=== PATIENT | male | born 1965 | race Caucasian/White ===

== ENCOUNTER 2017-02-12 02:05 | Emergency (ER) | payer OTHER ==
[~2017-02-12] VITALS: Ht 185.4 cm; Wt 158.8 kg
[~2017-02-12 02:05] MED LIST: CEPHALEXIN500 MG PO; CIPRO500 MG PO; DELTASONE20 MG PO; FLOMAX0.4 MG PO; FUROSEMIDE40 MG PO; GUAIFENESIN AC473 ML PO; LISINOPRIL-HCT1 EACH PO; MELOXICAM15 MG PO; METFORMIN HCL500 MG PO; METOPROLOL TART50 MG PO; NAPROSYN500 MG PO; NAPROXEN500 MG PO; NORCO 5-325 TA1 EACH PO; PERCOCET 5-3251 EACH PO; POTASSIUM CHLO10 MEQ PO; PREDNISONE20 MG PO; PRINIVIL10 MG PO; PROVENTIL HFA6.7 GM INH; SEPTRA DS TABL1 EACH PO; ULTRAM50 MG PO; ZOFRAN ODT8 MG PO
[2017-02-12] MEDS ORDERED: NORCO 5-325 TA1 EACH PO (03:08)
[2017-02-12] MEDS ORDERED: CRUTCH1 EACH (03:09)
== END 2017-02-12 03:33 | disposition home or self-care (01) ==
LOC: ED 02:05
DX: S83.92XA Sprain of unspecified site of left knee, initial encounter (principal); E11.9 Type 2 diabetes mellitus without complications; I10 Essential (primary) hypertension; E66.01 Morbid (severe) obesity due to excess calories; Z87.891 Personal history of nicotine dependence; Z88.1 Allergy status to other antibiotic agents; Z79.899 Other long term (current) drug therapy; Z79.84 Long term (current) use of oral hypoglycemic drugs; W18.09XA Striking against other object with subsequent fall, initial encounter
CPT/HCPCS: 73560; 99283

== ENCOUNTER 2017-07-29 23:20 | Inpatient (IN) | payer OTHER ==
[~2017-07-29] VITALS: Ht 185.4 cm; Wt 170.5 kg
[~2017-07-29 23:20] MED LIST changes: +CRUTCH1 EACH
--- NOTE | 2017-07-30 03:13 | NUR ---
PT ARRIVES TO ROOM 127 FOR HOUSE CONVENIENCE ADMIT. ALERT AND AWAKEN SLIDES SELF OVER TO BED. ASSESSMENT DONE. CURRENTLY RATES MIDEPIGASTRIC ABDOMINAL PAIN 6/10, STATES ITS BETTER THAN IT WAS AND HAS A LITTLE NAUSEA.
--- NOTE | 2017-07-30 05:01 | NUR ---
PT HAS BEEN SLEEPING WITH O2 IN PLACE, OCCASIONAL DESATURATION DOWN TO 86% THEN BACK UP TO 96%, STATED HE DOES WEAR A BIPAP AT HOME WHILE SLEEPING.
--- NOTE | 2017-07-30 07:19 | EKG ---
[facility] [address] [place], [place] [address] Signed Normal sinus rhythm Normal ECG When compared with ECG of 05-APR-2016 19:19, No significant change was found Confirmed by RODRIGO GAMBINO MD ([id number]) on 07/30/2017 7:19:45 AM Electronically Signed By: RODRIGO GAMBINO MD 07/30/17 0719 PATIENT NAME: JOSE JACOBS Electrocardiogram DATE OF : 63 PHYSICIAN: RODRIGO GAMBINO MD REPORT #: [id number] REPORT IS CONFIDENTIAL AND NOT TO BE RELEASED WITHOUT AUTHORIZATION
--- NOTE | 2017-07-30 09:15 | NUR ---
IN TO PROOM TO ASSESS PATIENT. REPORTED PAIN. PATIENT MEDICATED FOR 7/10 EPIGASTRIC PAIN. SHIFT ASSESSMENT DONE. LUNGS ARE DIM. PATIENT HAS HX OF PSORIASIS. PEDAL PULSES PALPABLE. PATIENT IS NPO AT THIS TIME. DENIES NAUSEA WILL CONTINUE TO MONITOR
--- NOTE | 2017-07-30 09:30 | NUR ---
DR WILLSON WAS IN ROOM TO EVALUATE AND DISCUSS PLAN OF CARE.
--- NOTE | 2017-07-30 10:30 | NUR ---
PATIENT UP TO BATHROOM. CONSENT SIGNED.
--- NOTE | 2017-07-30 10:39 | NUR ---
MICHAEL ANESTHESIOLOGIST IN ROOM TO TALK TO PATIENT.
--- NOTE | 2017-07-30 11:35 | NUR ---
PATIENT TRANSFER TO [facility]. WILL CONTINUE TO CARE FOR PATIENT.
--- NOTE | 2017-07-30 12:18 | NUR ---
PATIENT IS TAKING A HIBICLENS SHOWER. I AM STANDING BY IN CASE HE NEEDS ASST. LINEN CHANGED.
--- NOTE | 2017-07-30 14:49 | NUR ---
PATIENT OFF THE FLOOR WITH SURGERY NURSE TOM.
--- NOTE | 2017-07-30 15:38 | NUR ---
PATIENT BACK TO FLOOR, SURGERY WAS CANCEL DUE TO PATIENT RESPIRATORY ISSUES (EXPIRATORY WHEEZING, LOW OXYGENE SATURATION) CHEST XRAY DONE AND NEB TREATMENT DONE IN SURGERY DEPARTMENT. PATIENT REPORT MILD ABD PAIN, HEADACHE. NO APPARENT DISTRESS. VS STABLE.
--- NOTE | 2017-07-30 15:58 | HP ---
[facility] [address] [place], [place] [address] Signed ADMISSION DATE: 07/29/2017 REASON FOR ADMISSION: Acute calculous cholecystitis and morbid obesity. 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 He has had left knee problems and is under the care of Dr. Vish Zuniga for that. He has had arthroscopic interventions on that knee and is anticipating some other orthopedic surgery there as well. He was watching TV late last night and had the sudden onset of very severe right upper abdominal and mid abdominal pain. He presented to the emergency room where he was evaluated by Dr. Jernigan. He had nausea and vomiting x1 documented. He had some shortness of breath and mid chest pain and EMS had transported him to the hospital and nitroglycerin was given en route with resolution of the chest pain, but with persistent abdominal pain. His evaluation in the emergency room included lab studies, which showed reasonably normal urinalysis, normal lipase at 33, chem profile normal and normal white count of 7.0 with hematocrit of 40.2 with platelets of 130,000. His troponin was normal. Liver enzymes were normal. A chest x-ray showed prominent pulmonary vasculature without pulmonary edema similar to previous exams and an ultrasound showed gallstones as well as gallbladder sludge and a thickened gallbladder wall and a positive Burroughs sign. Hepatomegaly was noted as well. He is admitted for further evaluation and care for acute calculous cholecystitis. PAST MEDICAL HISTORY: Primarily significant for the orthopedic issue as we described of his left knee. He is on a temporary Workers Comp Disability. Past medical history also includes hypertension. MEDICATIONS: Include: 1. Lasix 40 mg p.o. daily. 2. Lisinopril/hydrochlorothiazide 20/12.5 p.o. daily. 3. Metformin 500 mg p.o. b.i.d. SOCIAL HISTORY: He lives with his ex- and children. 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 REVIEW OF SYSTEMS: He has no chest pain at this time. No dysphagia, hematemesis, or blood per rectum. His Electronically Signed By: ROSY WILLSON MD 07/30/17 1558 PATIENT NAME: JOSE JACOBS HISTORY AND PHYSICAL DATE OF : 63 PHYSICIAN: ROSY WILLSON MD REPORT #: [id number] REPORT IS CONFIDENTIAL AND NOT TO BE RELEASED WITHOUT AUTHORIZATION [facility] [address] [place], [place] [address] Signed pain persists in the upper abdomen mostly in the right subcostal area. PHYSICAL EXAMINATION: GENERAL: A very large and hairy white man with a very full clark. He is alert, oriented, and not systemically toxic. HEENT: Mucous membranes are reasonably moist. Trachea is midline. CHEST: Shows normal respiratory excursion without tachypnea. ABDOMEN: His abdomen is markedly obese. He has multiple skin lesions of his abdominal wall and psoriasis type lesions as well. EXTREMITIES: Show no clubbing, cyanosis, or edema. LABORATORY DATA: Lab studies and other studies were reviewed in detail. ASSESSMENT: He has acute calculous cholecystitis. This is complicated by an underlying problem of obesity as well as a smoking history. Discussed with him the pathophysiology of the problem and recommendation of treatment to include cholecystectomy, preferably by laparoscopic approach. He may require an open procedure, particularly given his obesity and hepatomegaly and so laparoscopic approach would be preferred obviously. We will administer him more fluids, continue IV antibiotics, and optimization and consider for cholecystectomy later in the day if possible. MD CHRISTIAN Jimenez/JUDITHL /[id number] cc: LATRICIA Mckeon MD Electronically Signed By: ROSY WILLSON MD 07/30/17 1558 PATIENT NAME: JOSE JACOBS HISTORY AND PHYSICAL DATE OF : 63 PHYSICIAN: ROSY WILLSON MD REPORT #: [id number] REPORT IS CONFIDENTIAL AND NOT TO BE RELEASED WITHOUT AUTHORIZATION
--- NOTE | 2017-07-30 18:47 | NUR ---
RT WAS IN ROOM TO DRAW ABG. PATIENT STARTED TO VOMIT. WARM WASH CLOTH GIVEN AND PATIENT WAS MEDICATED WITH ZOFRAN. 100ML OF EMESIS.
--- NOTE | 2017-07-30 18:49 | NUR ---
PATIENT TO FLOOR FROM CCU. SURGERY WAS CANCELED DUE TO RESPIRATORY ISSUES. PATIENT CAME BACK TO FLOOR, ADVANCE TO CLEAR LIQ DIET, DID NOT TOLERATED. PATIENT HAD ZOFRAN AND PHENERGAN.PATIENT ON 3L OF 02 VIA NC. NEED TO BE ON 02 AT ALL TIME. U/O Q/S. DR JONES CONSULTING.
--- NOTE | 2017-07-30 19:15 | NUR ---
SHIFT REPORT RECIEVED. PATIENT RESTING QUIETLY. BREATHING EVEN AND NONLABORED. RR18. HOB ELEVATED. CALL LIGHT IN REACH.
--- NOTE | 2017-07-30 19:59 | NUR ---
Pt jocelin, RT here placing bipap on pt. Bed alrm placed on. Family had multiple questions and concerns about pts meds, state of health, why surgery got cancelled and about bipap. RT staff and this RN answered all their questions to their satisfaction. Dr Laguna notified. Dr WILLSON notified via phone, message left. Pt eyes closed, opened eyes, did not utter a word. Family at bedside
--- NOTE | 2017-07-30 20:07 | NUR ---
PATIENT IN BED WITH BIPAP ON. ROOM TIDIED. WHITEBOARD UPDATED.
--- NOTE | 2017-07-30 20:12 | NUR ---
PATIENT IS DROWSEY, EASILY AROUSABLE. ORIENTED X4. BIPAP IN PLACE. RT IN ROOM. PATIENT'S DAUGHTERS IN ROOM. ALL ARE VERY ANXIOUS AND TEARFUL. RN EXPLAINED THE PLAN OF CARE TO THE OLDEST DAUGHTER AND REASSURED THAT THEY WOULD BE CONTACTED IF THE PATIENT'S CONDITION CHANGES THROUGHOUT THE NIGHT. FAMILY HAS GONE HOME NOW. RT STILL IN ROOM. CALL LIGHT PLACED IN PATIENT'S HAND.
--- NOTE | 2017-07-30 20:50 | NUR ---
PATIENT'S EX-, WHICH HE LIVES WITH, CALLED TO SPEAK TO THIS RN. UPDATED HER ON PLAN OF CARE AT THIS TIME, SUCH THE BIPAP AND CONTINUOUS PULSE OX. SHE REQUEST TO BE CALLED WITH ANY UPDATES AND RN AGREED.
--- NOTE | 2017-07-30 21:10 | NUR ---
EVENING MEDS GIVEN PER ORDER. PATIENT IS DROSWEY, AROUSES TO VOICE. ORIENTED X4. O2 SAT 94% ON THE BIPAP WITH 32% O2. UNABLE TO ASSESS LUNG SOUNDS DUE TO BIPAP. RR16 AND IRREGULAR. PATIENT IS FREQUESTLY DROSWEY AND FALLS BACK ALSEEP QUICKLY. BED ALARM ON. PLUSE OX LIMITS SET TO ALARM. PEDAL PULSES A WEAK AND THREADY. RADIAL PULSES STRONG AND REGULAR. PATIENT DENIES PAIN. ABD IS ROUND, FIRM AND HYPOACTIVE BOWEL SOUNDS ARE HEARD. PATIENT DENIES PAIN, BUT WINCED WHEN RLQ WAS PALPATED. SCDS IN PLACE. CALL LIGHT IN HAND. LIGHTS LEFT ON IN ROOM AT THIS TIME.
--- NOTE | 2017-07-30 21:11 | NUR ---
2053 - NO CALL BACK FROM DR WILLSON, CALLED AT HIS CELL # AND HOME PHONE#, PHONE MESSAGE LEFT. 2110- NO ASNWER AT THIS TIME, DR JONES AND ISAIAH NOTIFIED, WILL TRY TO CALL AGAIN
--- NOTE | 2017-07-30 21:33 | NUR ---
called dr johns again to his cell phone [phone]. no answer, message left. Dr Laguna notified
--- NOTE | 2017-07-30 22:00 | NUR ---
RETURNED CL[employer]S CALLS AND SPOKE WITH .
--- NOTE | 2017-07-30 22:10 | NUR ---
RT IN ROOM FOR ABG DRAW, RN ASSIST.
--- NOTE | 2017-07-30 22:20 | NUR ---
PATIENT IS DROSWEY BUT AROUSABLE. DENIES PAIN OR TOILETING NEED. PATIENT ON BIPAP. O2 SAT 98%. RR18. IV FLUIDS INFUSING, SITE WNL. CALL LIGHT IN REACH. HOB ELEVATED.
--- NOTE | 2017-07-30 23:00 | NUR ---
PATIENT IN BED, HOB ELEVATED. BIPAP MASK TEMPORARLY REMOVED TO HEAR PATIENT. HE DENIES NEEDING TO USE THE TOILET. DISCUSSED NEED FOR BIPAP TO ASSIST WITH BREATHING. PATIENT AGREES TO LEAVE IT IN PLACE. CALL LIGHT IN REACH.
--- NOTE | 2017-07-30 23:50 | NUR ---
PATIENT BEGAN TO COUGH AND MOVE IN THE BED. RN REMOVED BIPAP MASK. PATIENT COUGHED UP A MODERATE AMOUNT OF YELLOW PHLEM. PATIENT REQUESTED TO USE THE BATHROOM, HE REFUSED TO USE THE URNAL. PATIENT ASSISTED OUT OF BED. PATIENT AMBULATED WITH A SBA, STEADY ON HIS FEET. DENIED DIZZINESS AND FEELING LIGHTHEADED. PATIENT INTO THE BATHROOM AND TO RECLINER. REQUESTED A BREAK FROM THE BIPAP MASK. PATIENT 88% ON ROOM AIR. TITRATED PATIENT TO 3L NC TO MAINTAIN AN O2 SAT OF 97%. PATIENT IS AAOX3. RT CONTACTED ABOUT PATIENT BEING TAKEN OF BIPAP, RT WILL EVALUATE PATIENT. PUBLIC HEALTH INSPECTOR IN ROOM TO DRAW ABG. PATIENTS LUNGS ARE DIMINISHED THROUGHOUT WITH UPPER AIRWAY CONGESTION. ABD IS ROUND AND FIRM, TENDER WITH HYPOACTIVE BOWEL SOUNDS. PATIENT REQUEST CHICKEN BROTH. THIS WAS PROVIDED AND DISCUSSED NPO STATUS TO START AT MIDNIGHT. PATIENT VERIBILIZED UNDERSTAND. PATIENT DENIED ABD PAIN. CALL LIGHT IN REACH. PERSONAL ITEMS WITHIN REACH.
--- NOTE | 2017-07-31 00:15 | NUR ---
PATIENT IS NPO AT THIS TIME. HE REPORTS A HEADACHE. PRN TORADOL PROVIDED. PATIENT RESTING IN THE RECLINER. AGREED TO GO BACK ON THE BIPAP SOON. CALL LIGHT IN REACH.
--- NOTE | 2017-07-31 01:20 | NUR ---
PATIENT CONTINUED TO COUGH UP MODERATE AMOUNTS OF YELLOW PHLEM. PATIENT AGREES TO GO BACK INTO BED TO HAVE BIPAP PUT IN PLACE. RT ASSISTED PATIENT WITH BIPAP. RN ENSURED PATIENT WAS COMFORTABLE, HOB ELEVATED. PULSE OX IN USE. IV FLUIDS INFUSING, SITE WNL. PATIENT REPORTS BEING COMFORTABLE. CALL LIGHT AND CELL PHONE ARE WITHIN REACH.
--- NOTE | 2017-07-31 01:40 | NUR ---
PATIENT RESTING QUIETLY IN BED. BIPAP IN USE. PULSE OX 98%. CALL LIGHT IN REACH.
--- NOTE | 2017-07-31 02:40 | NUR ---
PATIENT COUGHING AND BIPAP MASK DISLODGED. RN REMOVED MASK. PATIENT ABLE TO SPIT OUT PHLEM AND SETTLE DOWN AFTER 2-3MINS OF COUGHING. REPLACED MASK. PATIENT REPORTS HIS HEADACHE HAS IMPROVED. DENIES FURTHER NEEDS AT THIS TIME. CALL LIGHT IN REACH.
--- NOTE | 2017-07-31 04:15 | NUR ---
PATIENT RESTING IN BED. BIPAP IN PLACE. 2 SAT 96%. CALL LIGHT IN REACH.
--- NOTE | 2017-07-31 05:48 | NUR ---
PATIENT UP TO BATHROOM WITH ASSIST FROM SANTHOSH FULLER. PATIENT CONTINUES TO HAVE A PRODUCTIVE COUGH. DISCUSSED NEED FOR BIPAP WITH PATIENT AND RT DRAWING AN ABG THIS MORNING. PATIENT IS AGREEABLE.
--- NOTE | 2017-07-31 05:50 | NUR ---
PATIENT WAS CONSIDERABLEY DROSWEY AT THE BEGINING OF THE SHIFT. THROUGHOUT THE NIGHT HE BECAME MORE ALERT. MINIMAL PAIN. FREQUENT PRODUCTIVE COUGH. ABLE TO AMBULATE SBA TO THE BATHROOM. PATIENT ON BIPAP ALL NIGHT AT 32%. SCDS IN USE. NPO SINCE MIDNIGHT. REPEAT ABG THIS MORNING.
--- NOTE | 2017-07-31 06:51 | NUR ---
PATIENT RESTING IN BED. BIPAP IN PLACE. DENIES NEEDS AT THIS TIME. CALL LIGHT IN REACH.
--- NOTE | 2017-07-31 07:30 | NUR ---
REPORT RECEIVED FROM BRENDAN WREN. PT LAYING IN BED WITH BIPAP ON. AWOKE FOR REPORT. PT STATES SHE IS FEELING A LITTLE BETTER TODAY.
--- NOTE | 2017-07-31 10:06 | NUR ---
ADMINSTERED MORNING MEDS. RT REMOVED BIPAP AND PT SATS IN THE MID 90'S. REPEATS THAT HE FEELS BETTER THAN YESTERDAY. RT TO LOOK AT HIS HOME MACHINE WHEN FAMILY BRINGS IT IN.
--- NOTE | 2017-07-31 10:08 | NUR ---
PT PLACED BACK ON O2 FOR SATS IN THE MID 80'S AFTER AMBULATING TO RESTROOM. SATS NOW 94
--- NOTE | 2017-07-31 13:28 | NUR ---
PT WALKED IN FLOR WITH RN STUDENT TALHA. PT DENIES ANY ABDOMINAL PAIN OR DISCOMFORT, JUST KNEE PAIN. TOLERATED WELL ON PORTABLE OX.
--- NOTE | 2017-07-31 13:29 | NUR ---
PT UP TO AMBULATE IN HALLWAY. 1 LAP AROUND UNIT. TOLERATED WELL. REPORTED NO PAIN OR SOB WITH 1L OF O2. PT IS ALERT AND PLEASANT UP IN CHAIR.
--- NOTE | 2017-07-31 15:45 | NUR ---
PT OFF TO SURGERY WITH RN DAVID. PT WIP[place]OWN DONE, LR HANGING AND PRO CHECKLIST AND ANEST. SUMMARY ON CHART.
--- NOTE | 2017-07-31 18:14 | NUR ---
PT REMAINS OFF UNIT.
--- NOTE | 2017-07-31 18:19 | NUR ---
07/31/171818 Silvana Duenas 1810: PT ARRIVES TO PACU. HE IS HAVING A HARD TIME STOP COUGHING. RT IS CALLED TO PLACE BIPAP IF NECESSARY.
--- NOTE | 2017-07-31 19:00 | NUR ---
PT BACK FROM SURGERY. USED HOVER MAT TO TRANSFER TO BED WO DIFF. PT RATES PAIN 1/10, LAPSITES X4 SMALL AMT DRY DRAINAGE. APPROX. 20 MLS IN MANPREET DRAIN ON RIGHT SIDE. MANPREET GAUZE APPEARS RED UNDER TAPE. PT HAS PRODUCTIVE COUGH AND WOULD LIKE TO WAIT A LITTLE WHILE TO GO ON BIPAP. 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 VS STABLE. IVF RUNNING AND ANCEF INFUSING.
--- NOTE | 2017-07-31 19:43 | NUR ---
TELE RX HAS QUESTIONS ABOUT PTS TORADOL AND IBUPROFEN ORDERS. MESSAGE LEFT AT DR WILLSON'S CELL PHONE#
--- NOTE | 2017-07-31 20:03 | NUR ---
pt awake, watching tv, O2 2L/NC, cont pulse ox in place, sats 91%. r 20. Pt denies c/o pain at this time. Multiple scabs over abd, arms and frontal legs, in different stages of healing.Abd opsites intact, MANPREET dressing with old shadowing, and drain with s/s drainage. scds in place. Coop with assessmen
--- NOTE | 2017-07-31 22:00 | NUR ---
awake, visiting with family, no c/oo pain. O2 2l n/c
--- NOTE | 2017-08-01 01:13 | NUR ---
Bipap in place, resting, eyes closed, no resp distress, no further c/o pain. f/c patent draining drk yellow urine
--- NOTE | 2017-08-01 05:53 | NUR ---
Pt currently awake, watching tv. O2 2L N?C, cont pulse ox in place sats 94%, p84, no resp distress. Used Bipap last night, tolerated well. Medicated x1 with Ibuprofen 600mg po c/o abd pain. Abd lap yoandy opsite sites intact. R MANPREET dressing site, changed due to saturation of ss drainage, MANPREET patent, draining 40cc ss/ drainage. Procedure explained, cooperative. F/c in place, draining dark yellow urine. IVF infusing w/o problems, no c/o adverse reaction to abx. Tolerating jello and juice well, no n/v. No c/o pain at this time, no other requests
--- NOTE | 2017-08-01 07:42 | NUR ---
PT'S BREAKFAST ORDER HAS BEEN TAKEN AND GIVEN TO DIETARY. PT EXPRESSES NO OTHER NEEDS AT THIS TIME. CALL LIGHT IS IN REACH.
--- NOTE | 2017-08-01 09:10 | NUR ---
PT UP TO BATHROOM WITH STANDBY ASSIST. PT HAS LARGE BM. BACK TO CHAIR. [employer] REMOVED AT THIS TIME. PT TOLERATED WELL.
--- NOTE | 2017-08-01 10:04 | NUR ---
PT UP TO BATHROOM WITH STANDBY ASSIST. PT VOIDED AND HAD LARGE BOWEL MOVEMENT. BACK TO CHAIR. DISCUSSED USING IS AND ACAPELLA. VERBALIZED UNDERSTANDING.
--- NOTE | 2017-08-01 10:06 | NUR ---
PT UP IN CHAIR. STATES HE WOULD LIKE SOME JELLO OR PUDDING. VITALS AND I&O'S TAKEN AND DOCUMENTED. NO OTHER NEEDS AT THIS TIME. CALL LIGHT IS IN REACH.
[2017-08-01] MEDS ORDERED: NICOTINE PATCH1 EAC1 TD (11:18)
[2017-08-01] MEDS ORDERED: IBUPROFEN600 MG PO (11:18)
[2017-08-01] MEDS ORDERED: MAPAP325 MG PO (11:19)
--- NOTE | 2017-08-01 11:24 | NUR ---
pt up and ambulating in hallway with lubricating engineer. tolerating well.
[2017-08-01] MEDS ORDERED: DIFLUCAN200 MG PO (11:53)
--- NOTE | 2017-08-01 13:00 | NUR ---
Pt discharge instructions given on medication, follow-up, diet, activity, and when to contact md. verbalized understanding.
--- NOTE | 2017-08-01 13:03 | NUR ---
pharmacist in room with pt.
--- NOTE | 2017-08-01 13:26 | NUR ---
pt in room awaiting ride to go home.
--- NOTE | 2017-08-01 13:55 | NUR ---
PT'S BP IS ELEVATED. PT DOES NOT WANT HIS BP TAKEN ANOTHER TIME. WILL NOTIFY RN.
--- NOTE | 2017-08-03 08:52 | DS ---
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 The evening of his evaluation in the emergency room, he was noted to have right upper quadrant pain, which was severe and ongoing and unrelenting. He was seen in the setting of the emergency room by Dr. Jernigan where he was noted to have tenderness. Evaluation included lab studies showing normal urinalysis and lipase of 33. Chem profile, normal white count and troponin normal. Liver enzymes were also normal. The chest x-ray showed prominent pulmonary vasculature without pulmonary edema. The gallbladder ultrasound was performed, which showed some gallbladder sludge and a thickened gallbladder wall and a large gallstone. Positive Burroughs sign was noted. He is admitted for further evaluation and care. PAST MEDICAL HISTORY: Does include morbid obesity and sleep apnea syndrome for which he uses a BiPAP device, but has not been using it in the past year. Apparently, the face mask was dysfunctional in someway. He sees Corwin Hui as his primary provider in that regard. PERTINENT PHYSICAL EXAMINATION: GENERAL: A very large and hairy white male with a very full clark. He is alert and oriented and not systemically toxic. HEENT: Mucous membranes are reasonably moist. Trachea midline. CHEST: Showed normal respiratory excursion without tachypnea, but subsequently did show end inspiratory and expiratory wheezing. ABDOMEN: Markedly obese. He has multiple skin lesions of psoriasis as well as intertriginous yeast-type changes. EXTREMITIES: Show no clubbing, cyanosis, or edema. HOSPITAL COURSE: He was admitted, given fluid resuscitation; intravenous antibiotic, Ancef. The patient though very morbidly obese, certainly did have acute cholecystitis, compounded a bit by respiratory issues. He was fluid resuscitated and in the preoperative area, anticipating operation was noted to have some progressive pulmonary distress including copious pulmonary secretions and inspiratory wheezing. A chest x-ray was repeated, which did not show infiltrate or fluid, but given his situation, the plan for operation on Wednesday was scheduled to better optimize his pulmonary situation. Consultation with Dr. Maza was undertaken, whose thorough evaluation confirmed him to have a significant sleep apnea problem and probably chronic respiratory acidosis. Electronically Signed By: ROSY WILLSON MD 08/03/17 0852 PATIENT NAME: JOSE JACOBS DISCHARGE SUMMARY DATE OF : 63 PHYSICIAN: ROSY WILLSON MD REPORT #: [id number] REPORT IS CONFIDENTIAL AND NOT TO BE RELEASED WITHOUT AUTHORIZATION [facility] [address], [place] [address] Signed Arterial blood gas did show a pH of 7.28, CO2 greater than 62. Operation was obviously delayed and pulmonary optimization was undertaken with additional bronchodilators and so on. By Wednesday, he was considered reasonable for consideration of operation. His arterial blood gas was repeated and was far more acceptable in its appearance. On July 31, 2017, he underwent laparoscopic cholecystectomy with intraoperative cholangiogram. The operation was prolonged, complicated, and difficult on the basis of his obesity, but was well tolerated. He was concurrently noted to have cirrhotic changes, for which a liver biopsy was also obtained. A drain was placed as well. Cholangiogram was normal. The gallbladder was acutely inflamed and had a single large 3 cm gallstone. No sign of neoplasm of the mucosa. A concurrent umbilical hernia that he had was found to have only some omentum within it. No hollow viscus and it was not otherwise dealt with at that time in part because the overlying skin was afflicted rather significant with psoriasis. Postoperatively did remarkably well. Mindful that hypoventilation in his case was markedly accentuated with any type of opioid. He was maintained only with Toradol and/or Motrin. This was quite adequate for his pain control. The drain that was placed showed no evidence of bile leak and was removed the following day. By the time of discharge, he was ambulating well, tolerating a regular diet, has good oxygenation and is likely much better than his usual baseline. Respiratory therapist had coordinated with the patient to help with replacement of his mask for BiPAP use at home, which should be forthcoming. The drain was removed prior to discharge as there was no sign of bile leak. It is anticipated he will be able to return to work in a limited duty capacity as he has been for his orthopedic problem of his left knee. As long as he is not lifting more than 20 pounds, I believe he could work if he wishes. DISCHARGE MEDICATIONS: Will include: 1. Nicotine patch 21 mg topically each day with 4 refills, dispensing #30. 2. Ibuprofen 600 mg p.o. q.6 as needed for pain, #90. Also, Tylenol 650 mg p.o. q.6 hours p.r.n. pain. He will continue with his Lasix 40 mg tablets daily. 3. Lisinopril/hydrochlorothiazide 20/12.5, one p.o. daily. 4. Metformin 500 mg p.o. b.i.d. 5. Albuterol sulfate inhaler, 2 puffs q.6 hours. Electronically Signed By: ROSY WILLSON MD 08/03/17 0852 PATIENT NAME: JOSE JACOBS DISCHARGE SUMMARY DATE OF : 63 PHYSICIAN: ROSY WILLSON MD REPORT #: [id number] REPORT IS CONFIDENTIAL AND NOT TO BE RELEASED WITHOUT AUTHORIZATION [facility] [address] [place] [id number] Signed 6. Naprosyn 500 mg b.i.d. for his knee when abdominal pain issue has resolved. I have advised him to discontinue his hydrocodone. DISCHARGE DIAGNOSES: 1. Acute calculous cholecystitis. 2. Morbid obesity (greater than 385 pounds, 6 feet 1 inches). 3. Status post laparoscopic cholecystectomy with intraoperative cholangiogram on July 31, 2017. 4. Smoking with chronic hypoventilation syndrome and sleep apnea with use of BiPAP device. 5. History of work-related left knee problem, currently on limited duty at [employer]. 6. Hypertension. FOLLOWUP PLAN: He will return to see me in approximately 4 weeks. He is advised to follow up with his usual provider, LATRICIA Mcclellan also. MD CHRISTIAN Jimenez/JANUARY /[id number] cc: LATRICIA Mckeon MD Lohith Veerappa Reddy, MD Electronically Signed By: ROSY WILLSON MD 08/03/17 0852 PATIENT NAME: JOSE JACOBS DISCHARGE SUMMARY DATE OF : 63 PHYSICIAN: ROSY WILLSON MD REPORT #: [id number] REPORT IS CONFIDENTIAL AND NOT TO BE RELEASED WITHOUT AUTHORIZATION
--- NOTE | 2017-08-03 08:52 | OR ---
[facility] [address] [place], [place] [address] Signed DATE OF OPERATION: 07/31/2017 SURGEON: Rosy Willson MD PREOPERATIVE DIAGNOSES: 1. Acute calculous cholecystitis. 2. Morbid obesity (375 pounds) and ongoing tobacco abuse. 3. Sleep apnea syndrome (hypoventilation syndrome). 4. Extensive psoriasis and other dermatitis including yeast dermatitis. POSTOPERATIVE DIAGNOSES: 1. Acute calculous cholecystitis. 2. Morbid obesity (375 pounds) and ongoing tobacco abuse. 3. Sleep apnea syndrome (hypoventilation syndrome). 4. Extensive psoriasis and other dermatitis including yeast dermatitis. 5. Possible cirrhotic changes of the liver. PROCEDURES: 1. Laparoscopic cholecystectomy with intraoperative cholangiogram, prolonged, complicated, difficult. 2. Surgeon-directed fluoroscopy. 3. Laparoscopic liver biopsy. ANESTHESIA: General endotracheal (opiate free), Melisa Mccullough CRNA, and local 20 mL of 0.25% Marcaine without epinephrine. INDICATION: This morbidly obese, 375-pound 52-year-old white man has diabetes and chronic smoking history and is currently on light duty for prior left knee problem. He is admitted to the hospital through the emergency room with severe right upper abdominal pain on July 31, 2017. He was found on gallbladder ultrasound to have a single large gallstone and acute cholecystitis. He was fluid resuscitated given intravenous antibiotics, anticipating operation yesterday, but had a significant enough pulmonary problems including excessive secretions and so forth as well as wheezing and so on that operation was actually canceled. The patient was optimized with the assistance of Dr. Maza, the hospitalist, and was found to have chronic CO2 retention with pH of 7.27, and CO2 of 72. This has been improved quite markedly and he today (Wednesday) is of a reasonable condition to Electronically Signed By: ROSY WILLSON MD 08/03/17 0852 PATIENT NAME: JOSE JACOBS OPERATIVE REPORT DATE OF : 63 PHYSICIAN: ROSY WILLSON MD REPORT #: [id number] REPORT IS CONFIDENTIAL AND NOT TO BE RELEASED WITHOUT AUTHORIZATION [facility] [address] [place], [place] [address] Signed proceed with general anesthesia and cholecystectomy. Of special note, BiPAP, which he has been on for in the past, but abstinent from over a year was initiated last night, which was markedly beneficial as well. He understands as does his ex- who attends to him and their children the risks of bleeding, infection, bile duct injury, need for open procedure, as well as cardiopulmonary decompensation given his underlying problems. He understands and wished to proceed. FINDINGS: The gallbladder was acutely inflamed and edematous. The liver itself had what appeared to be cirrhotic changes, the liver biopsy was obtained. The gallbladder once excised showed a single large gallstone, the mucosa was chronically and subacutely inflamed. Cholangiogram was normal. Bile ducts were normal in every way. Liver biopsy was obtained of the medial segment of left lobe of the liver. There were no other intra-abdominal findings. It is noted that he does have an umbilical hernia and significant psoriasis changes in the area of the abdominal wall. Internal inspection showed only omentum to be within the hernia, no hollow viscus. DESCRIPTION OF PROCEDURE: The patient was brought to the operating room, given a general endotracheal anesthetic with GlideScope technique. There were no complications to intubation or induction. A supportive wedge was used as well. It was removed, and the abdomen was then clipped in preparation for operation. A Rey catheter was placed as well. The abdomen was prepared with chlorhexidine solution. He had numerous psoriatic lesions over the abdominal wall at the umbilicus where a known umbilical hernia was noted. The hernia was easily reducible. After sterile draping, a supraumbilical incision was made based on his extreme abdominal girth and using an open Donell cannula technique, pneumoperitoneum was achieved to a level of 14 mmHg with carbon dioxide gas. Intra-abdominal inspection showed no sign of ascites or carcinomatosis, liver had a cirrhotic appearance to it. The gallbladder was obscured from view due to the omentum draped over the right lobe of the liver. Three additional trocars were placed in usual configuration in the subxiphoid, right midclavicular, and right anterior axillary line. The omentum was brought down from over the liver and this revealed an acutely inflamed gallbladder. The gallbladder was elevated cephalad and retracted laterally, but found to be obscured by a considerable amount of intra-abdominal fat and omentum. On that basis, an additional trocar was placed and a fan retractor was used to manipulate fatty tissue out of the way exposing well the area of the infundibulum. Using blunt electrocautery dissection, the triangle of Calot was dissected free, ultimately identifying well the cystic duct, which was surprisingly small actually. Cystic arterial branches were clipped and secured as well. A transverse choledochotomy was made in the cystic duct after applying a clip to the Electronically Signed By: ROSY WILLSON MD 08/03/17 0852 PATIENT NAME: JOSE JACOBS OPERATIVE REPORT DATE OF : 63 PHYSICIAN: ROSY WILLSON MD REPORT #: [id number] REPORT IS CONFIDENTIAL AND NOT TO BE RELEASED WITHOUT AUTHORIZATION [facility] [address] [place], [place] [address] Signed gallbladder cystic duct junction. Retrograde milking of the small cystic duct showed normal-appearing bile. An Franco-type cholangiocatheter was placed using surgeon-directed fluoroscopy. Intraoperative cholangiography was performed showing free flow of contrast in the biliary tree with prompt emptying into the duodenum. The cystic duct was relatively generous. The catheter was removed and the cystic duct was triply clipped and divided and the gallbladder dissected free in a retrograde fashion. There was no entry to the gallbladder during the course of dissection really, it was placed in the endobag and extracted through the supraumbilical port site. The fascia required additional incision to deliver the gallbladder with a very large 3 cm stone. The mucosa appeared chronically and subacutely inflamed. Irrigation was undertaken in the subhepatic space. There was no sign of bile leak, bleeding, or other problems, but given his obesity and other factors, a drain was deemed most appropriate and it was placed through the right-sided trocar site into the subhepatic space. Attention was then turned towards a biopsy of the liver. The liver had a nodular appearance, suggestive of cirrhosis, so possibility of congestive hepatopathy is also considered. Percutaneous passage of the biopsy gun device was used allowing for a core biopsy of the medial segment of the left lobe of the liver. Hemostasis was assured with electrocautery. The core specimen was quite good. Once hemostasis was assured, the trocars were removed under direct visualization showing no sign of bleeding. The infraumbilical fascial incision was reapproximated with interrupted 0 Vicryl suture in a meticulous way given his obesity. Not mentioned previously was the evaluation of his umbilical area where the hernia was, which showed omental fatty tissue there, but no evidence of hollow viscus. The other incisions were irrigated and skin closed with interrupted 3-0 Vicryl as was the supraumbilical incision. Near the time of extubation, the patient had coughing and the operating room nurse, who was securing the site with an abdominal wall support, felt a "pop." This was suggestive of possible dehiscence of the sutures. Gross examination showed no particular problem. On that basis, he remained intubated for that moment. The Steri-Strips were removed. The area was prepared with chlorhexidine again and sterilely draped. The incision was opened and examination undertaken showed the fascia to be intact, although the superior aspect had one suture that may have been loosened or disrupted and on that basis, additional 0 Vicryl sutures were placed in the fascia. Subcutaneous tissue was irrigated and skin closed with interrupted 3-0 Vicryl. Steri-Strips were applied. The patient was ultimately extubated without caring, and taken to the recovery room in good condition having suffered no complication. The operation was prolonged, complicated, and difficult for the aforementioned reasons of obesity and so on taking 3 times longer than usual. Electronically Signed By: ROSY WILLSON MD 08/03/17 0852 PATIENT NAME: JOSE JACOBS OPERATIVE REPORT DATE OF : 63 PHYSICIAN: ROSY WILLSON MD REPORT #: [id number] REPORT IS CONFIDENTIAL AND NOT TO BE RELEASED WITHOUT AUTHORIZATION [address] [place] [address] Signed MD CHRISTIAN Jimenez/JUDITHL /[id number] cc: LATRICIA Mckeon Dr. [facility] Electronically Signed By: ROSY WILLSON MD 08/03/17 0852 PATIENT NAME: ARLENEGARCIAChris DAWKINS OPERATIVE REPORT DATE OF : 63 PHYSICIAN: ROSY WILLSON MD REPORT #: [id number] REPORT IS CONFIDENTIAL AND NOT TO BE RELEASED WITHOUT AUTHORIZATION
== END 2017-08-01 13:58 | disposition home or self-care (01) | DRG 444 ==
LOC: ED 23:20 → CCU 23:21 → MS 07-30 09:41 → CCU 07-30 09:41 → MS 07-30 11:30
PROVIDERS: ADMIT Surgery
DX: K81.0 Acute cholecystitis (principal); J96.01 Acute respiratory failure with hypoxia; J96.02 Acute respiratory failure with hypercapnia; E66.01 Morbid (severe) obesity due to excess calories; G47.33 Obstructive sleep apnea (adult) (pediatric); I10 Essential (primary) hypertension; E11.9 Type 2 diabetes mellitus without complications; B19.20 Unspecified viral hepatitis C without hepatic coma; Z96.653 Presence of artificial knee joint, bilateral; F17.210 Nicotine dependence, cigarettes, uncomplicated; Z53.09 Procedure and treatment not carried out because of other contraindication; Z79.84 Long term (current) use of oral hypoglycemic drugs
CPT/HCPCS: 00790; 36600; 71045; 74300; 76705; 80053; 81001; 82803; 83690; 84484; 85025; 93005; 93010; 94640; 94660; 94667; 96374; 96375; 96376; 99284; 99406; G0378; J0131; J0330; J0360; J0690; J0735; J1100; J1450; J1644; J1885; J2270; J2405; J2550; J2704; J3010; J7120; Q9967

== ENCOUNTER 2017-09-19 08:33 | Emergency (ER) | payer OTHER ==
[~2017-09-19] VITALS: Ht 185.4 cm; Wt 170.5 kg
[~2017-09-19 08:33] MED LIST changes: +DIFLUCAN200 MG PO; +IBUPROFEN600 MG PO; +MAPAP325 MG PO; +NICOTINE PATCH1 EAC1 TD
== END 2017-09-19 14:28 | disposition short-term general hospital (02) ==
LOC: ED 08:33
DX: J18.9 Pneumonia, unspecified organism (principal); R04.2 Hemoptysis; I10 Essential (primary) hypertension; E11.9 Type 2 diabetes mellitus without complications; E66.01 Morbid (severe) obesity due to excess calories; Z87.891 Personal history of nicotine dependence; Z88.1 Allergy status to other antibiotic agents; Z79.84 Long term (current) use of oral hypoglycemic drugs; Z79.899 Other long term (current) drug therapy
CPT/HCPCS: 71045; 80053; 83605; 83880; 85025; 85379; 85610; 85730; 86850; 86900; 86901; 87502; 96374; 96375; 99285; J0456; J0696; J7030